=== PATIENT | male | born 1935 | race Caucasian/White ===

== ENCOUNTER 2017-01-07 10:45 | Emergency (ER) | payer MEDICARE ==
[2012-09-20 07:26] VITALS: BMI 24.0
[2017-01-07 11:22] LABS: APPEARANCE TURBID (CLEAR); COLOR RED (YELLOW); LEUKOCYTE ESTERASE NEGATIVE (NEGATIVE)
[2017-01-07 11:23] LABS: BACTERIA FEW /hpf (NONE SEEN); BILIRUBIN NEGATIVE (NEGATIVE); EPITHELIAL CELLS RARE /hpf (0-5); GLUCOSE 50 mg/dL (NEGATIVE); KETONE NEGATIVE (NEGATIVE); NITRITE NEGATIVE (NEGATIVE); PROTEIN 3+ mg/dL (NEGATIVE); RED CELLS - URINE >50 /hpf (0-5); UROBILINOGEN NORMAL (NORMAL); WHITE CELLS - URINE RARE /hpf (0-5)
[2017-01-07 11:42] LABS: BASOPHILS 0.3 % (0-2); EOSINOPHILS 3.1 % (0-7); HEMATOCRIT 42.2 % (42.0-54.0); HEMOGLOBIN 14.4 g/dL (13.5-17.5); IMMATURE GRANULOCYTES 0.2 % (0-5); LYMPHOCYTES 17.3 % (15-50); MCH 31.5 pg (26.0-34.0); MCHC 34.1 g/dL (31.0-37.0); MCV 92.3 fL (80.0-100.0); MEAN PLATELET VOLUME 9.8 fL (7.4-10.4); MONOCYTES 8.2 % (2-11); NEUTROPHILS 70.9 % (40-80); PLATELET COUNT 139 10x3/uL (130-400); RBC 4.57 10x6/uL (4.20-6.10); RDW 14.3 % (11.5-14.5); WBC 6.4 10x3/uL (4.8-10.8)
[2017-01-07 11:53] LABS: APTT 27.3 SECONDS (22.8-39.4); INR 0.95 (0.85-1.17); PROTIME 12.5 SECONDS (11.6-15.0)
[2017-01-07 12:11] LABS: ANION GAP 11.8 mmol/L (8-16); CALCIUM 9.1 mg/dL (8.5-10.1); CARBON DIOXIDE 27.2 mmol/L (21.0-32.0); CREATININE - SERUM 1.2 mg/dL (0.6-1.3)
== END 2017-01-07 12:20 | disposition home or self-care (01) ==
LOC: D.ER 10:45
PROVIDERS: Emergency Medicine
DX: R31.9 Hematuria, unspecified (principal); N42.9 Disorder of prostate, unspecified

== ENCOUNTER → 2019-07-16 12:51 | Outpatient (CLI) | payer MEDICARE ==
[2012-09-20 07:26] VITALS: BMI 24.0
== END | disposition home or self-care (01) ==
LOC: D.OPS 12:15
PROVIDERS: ATTEND Family Medicine
DX: M86.9 Osteomyelitis, unspecified (principal)

== ENCOUNTER 2019-08-01 10:18 | Outpatient (CLI) | payer MEDICARE ==
[2012-09-20 07:26] VITALS: BMI 24.0
== END 2019-08-01 13:00 | disposition home or self-care (01) ==
LOC: D.OPS 10:18 → D.SP 10:30 → D.OPS 10:30
PROVIDERS: ATTEND Family Medicine
DX: Z79.2 Long term (current) use of antibiotics (principal); I50.30 Unspecified diastolic (congestive) heart failure; I10 Essential (primary) hypertension; I25.10 Atherosclerotic heart disease of native coronary artery without angina pectoris; E78.5 Hyperlipidemia, unspecified; T82.898A Other specified complication of vascular prosthetic devices, implants and grafts, initial encounter